=== PATIENT | female | born 1960 | race Caucasian/White ===

== ENCOUNTER 2016-11-30 18:13 | Emergency (ER) | payer OTHER, BC ==
[2016-11-30] MEDS ORDERED: OPTIRAY 350 100 ML VIAL HMH IV ONE (18:14)
[2016-11-30] MEDS ORDERED: MORPHINE 4 MG/ML SYR ONE ×2 (19:48→21:55)
[2016-11-30] MEDS ORDERED: ONDANSETRON 4 MG VIAL ONE (19:48)
[2016-11-30] MEDS ORDERED: TDaP 0.5 ML VIAL IM.VACC ONE (19:49)
== END 2016-11-30 22:55 | disposition home or self-care (01) ==
LOC: ER 18:13
CPT/HCPCS: 36415; 70450; 71010; 71260; 72125; 72170; 73700; 80053; 81003; 83735; 85025; 85610; 85730; 90471; 96374; 96375; 96376